=== PATIENT | female | born 1950 | race Caucasian/White ===

== ENCOUNTER 2022-02-18 08:09 | Emergency (ER) | payer BC, MEDICARE ==
[~2022-02-18] VITALS: Ht 162.6 cm; Wt 81.2 kg
== END 2022-02-18 10:17 | disposition home or self-care (01) ==
LOC: ER 08:20
DX: R05.9 Cough, unspecified (principal); U07.1 COVID-19; K21.9 Gastro-esophageal reflux disease without esophagitis; Z87.19 Personal history of other diseases of the digestive system
CPT/HCPCS: 71045; 83518; 87070; 99283; U0002

== ENCOUNTER 2023-03-18 13:45 | Outpatient (RCR) | payer MEDICARE | END 2023-03-21 | LOC: PT 13:45 | PROVIDERS: ATTEND Otolaryngology | DX: R42 Dizziness and giddiness (principal) ==

== ENCOUNTER 2023-07-15 14:52 | Outpatient (RCR) | payer MEDICARE | END 2023-07-22 | LOC: PT 14:52 | PROVIDERS: ATTEND Otolaryngology | DX: H81.11 Benign paroxysmal vertigo, right ear (principal) ==

== ENCOUNTER 2025-05-09 05:14 | Emergency (ER) | payer MEDICARE ==
[~2025-05-09] VITALS: Ht 162.6 cm; Wt 79.4 kg
[2025-05-09 05:17] VITALS: TEMP 98.5
[2025-05-09] MEDS ORDERED: ONDANSETRON HCL INJ 2MG/ML 2ML 2 MG/ML VIAL IV PRN (05:30)
[2025-05-09 05:53] LABS: BASOPHILS % 0.4 % (0.0-1.0); EOSINOPHILS % 0.6 % (0.0-6.0); LYMPHOCYTES % 8.5 % (18.0-39.1); MONOCYTES % 5.3 % (4.4-11.3); NEUTROPHILS % 84.9 % (38.7-80.0); RED CELL DISTRIBUTION WIDTH 13.4 % (11.7-14.4)
[2025-05-09] MEDS: SODIUM CHLORIDE 0.9% 1000ML 1,000 ML IV STA (05:57)
[2025-05-09 06:11] LABS: EST GLOMERULAR FILTRATION RATE 83.0 ML/MIN (>=60)
[2025-05-09] MEDS ORDERED: IOPAMIDOL 370 MG/ML 100 ML INFUS..BTL INJ ONE (06:30)
[2025-05-09 06:41] VITALS: PULSE 81; RESP 15
[2025-05-09] MEDS ORDERED: ONDANSETRON ODT4 MG PO (06:46)
[2025-05-09] MEDS ORDERED: LEVSIN-SL0.125 MG SL (06:46)
[2025-05-09 07:14] VITALS: BP 149/61; PULSE 70; RESP 16; TEMP 98; O2SAT 95
[2025-05-09] MEDS ORDERED: PYRIDIUM100 MG PO (13:36)
[2025-05-09] MEDS ORDERED: CEFDINIR300 MG PO (13:36)
== END 2025-05-09 07:05 | disposition home or self-care (01) ==
LOC: ER 05:18
DX: R11.2 Nausea with vomiting, unspecified (principal); R10.30 Lower abdominal pain, unspecified; K21.9 Gastro-esophageal reflux disease without esophagitis; Z87.19 Personal history of other diseases of the digestive system; Z98.0 Intestinal bypass and anastomosis status
CPT/HCPCS: 36415; 80053; 83690; 84484; 85025; 99284; J7030; Q9967

== ENCOUNTER 2025-05-09 10:07 | Emergency (ER) | payer MEDICARE ==
[~2025-05-09] VITALS: Ht 162.6 cm; Wt 78.5 kg
[~2025-05-09 10:07] MED LIST: LEVSIN-SL0.125 MG SL; ONDANSETRON ODT4 MG PO
[2025-05-09 10:32] VITALS: TEMP 98
[2025-05-09] MEDS ORDERED: IOPAMIDOL 370 MG/ML 100 ML INFUS..BTL INJ ONE (10:38)
[2025-05-09] MEDS: ONDANSETRON HCL INJ 2MG/ML 2ML 2 MG/ML VIAL IV STA ×2 (11:44→13:42)
[2025-05-09] MEDS: SODIUM CHLORIDE 0.9% 1000ML 1,000 ML IV STA (11:44)
[2025-05-09 11:48] VITALS: PULSE 76; RESP 20
[2025-05-09 12:05] LABS: LEUKOCYTE ESTERASE ,URINE TRACE (NEGATIVE); PROTEIN,URINE DIPSTICK 2+ (NEGATIVE); URINE UROBILINOGEN 0.2 mg/dL (0.2 - 1)
[2025-05-09 12:58] LABS: EPITHELIAL CELLS,URINE FEW /LPF
[2025-05-09 12:59] LABS: WBC,URINE (MAN) >50 /HPF (0-5)
[2025-05-09] MEDS ORDERED: PYRIDIUM100 MG PO (13:36)
[2025-05-09] MEDS ORDERED: CEFDINIR300 MG PO (13:36)
[2025-05-09 13:52] VITALS: BP 148/65; RESP 18; O2SAT 97
== END 2025-05-09 13:37 | disposition home or self-care (01) ==
LOC: ER 10:14
DX: R10.30 Lower abdominal pain, unspecified (principal); R11.2 Nausea with vomiting, unspecified; K21.9 Gastro-esophageal reflux disease without esophagitis; Z87.19 Personal history of other diseases of the digestive system
CPT/HCPCS: 36415; 74177; 81001; 84484; 93005; 99284; J2405; J2470; J7030; Q9967